=== PATIENT | female | born 1985 | race Caucasian/White ===

== ENCOUNTER 2022-12-06 07:59 | Outpatient (CLI) | payer BC, OTHER ==
--- NOTE | 2022-12-06 11:40 | CT Report ---
PROCEDURE: CERVICAL SPINE WO INDICATIONS: CERVICAL SPONDYLOSIS TECHNIQUE: Noncontrast 3 mm thick sections acquired from the skull base to the T4 level. Sagittal and coronal r eformats were then constructed. For radiation dose reduction, the following was used: automated exp osure control, adjustment of mA and/or kV according to patient size. COMPARISON: 09/06/2015 FINDINGS: Image quality: Excellent. Bones: No fractures or dislocations. Visualized superior ribs are intact. Soft tissues: Prevertebral soft tissues are normal in thickness. No paravertebral hematomas. No ap ical pneumothoraces. IMPRESSION: Cervical spine CT within normal limits. If it would be helpful for clinical management decision making, please consider a dedicated cervical spine MRI for further evaluation (assuming that there is no contraindication). Reviewed by: Octavio Perkins MD on 12/06/2022 10:39 AM [facility] Approved by: Octavio Perkins MD on 12/06/2022 10:39 AM [facility] Station ID: [id number]
== END 2022-12-06 08:00 | disposition home or self-care (01) ==
LOC: DI 07:59
PROVIDERS: ATTEND Neurological Surgery
DX: M47.22 Other spondylosis with radiculopathy, cervical region (principal)